=== PATIENT | female | born 1975 | race Caucasian/White ===

== ENCOUNTER 2020-03-02 00:35 | Emergency (ER) | payer OTHER ==
[~2020-03-02] VITALS: Ht 175.2 cm; Wt 99.8 kg
[2020-03-02] MEDS ORDERED: AUGMENTIN 875875 MG PO (01:34)
== END 2020-03-02 01:47 | disposition home or self-care (01) ==
LOC: ED 00:35
DX: H66.92 Otitis media, unspecified, left ear (principal)

== ENCOUNTER 2020-03-16 22:21 | Emergency (ER) | payer OTHER ==
[~2020-03-16] VITALS: Ht 175.2 cm; Wt 102.1 kg
[~2020-03-16 22:21] MED LIST: AUGMENTIN 875875 MG PO
[2020-03-16] MEDS ORDERED: OMNICEF300 MG PO (22:41)
[2020-03-16] MEDS ORDERED: ZYRTEC10 M2 PO (22:41)
== END 2020-03-16 22:43 | disposition home or self-care (01) ==
LOC: ED 22:21
DX: H66.92 Otitis media, unspecified, left ear (principal)

== ENCOUNTER 2020-11-07 14:31 | Emergency (ER) | payer OTHER ==
[~2020-11-07] VITALS: Ht 170.1 cm; Wt 81.6 kg
[~2020-11-07 14:31] MED LIST changes: +OMNICEF300 MG PO; +ZYRTEC10 M2 PO
[2020-11-07] MEDS ORDERED: IBUPROFEN600 MG PO (16:20)
[2020-11-07] MEDS ORDERED: DOXYCYCLINE100 M3 PO (16:20)
== END 2020-11-07 16:59 ==
LOC: ED 14:31
DX: L02.215 Cutaneous abscess of perineum (principal); R11.2 Nausea with vomiting, unspecified; Z79.2 Long term (current) use of antibiotics; Z79.899 Other long term (current) drug therapy

== ENCOUNTER 2021-01-27 15:17 | Emergency (ER) | payer OTHER ==
[~2021-01-27] VITALS: Ht 175.2 cm; Wt 108.9 kg
[~2021-01-27 15:17] MED LIST changes: +DOXYCYCLINE100 M3 PO; +IBUPROFEN600 MG PO
[2021-01-27] MEDS ORDERED: VIBRAMYCIN100 MG PO (15:58)
[2021-01-27] MEDS ORDERED: IBUPROFEN600 MG PO (15:58)
[2021-01-27] MEDS ORDERED: Bactroban Oint22 GM T (16:32)
== END 2021-01-27 16:01 | disposition home or self-care (01) ==
LOC: ED 15:17
DX: N76.4 Abscess of vulva (principal); Z79.2 Long term (current) use of antibiotics; Z79.899 Other long term (current) drug therapy

== ENCOUNTER 2021-08-11 16:18 | Emergency (ER) | payer OTHER ==
[~2021-08-11] VITALS: Wt 108.9 kg
[~2021-08-11 16:18] MED LIST changes: +Bactroban Oint22 GM T; +VIBRAMYCIN100 MG PO
[2021-08-11] MEDS ORDERED: CEFDINIR300 MG PO (17:10)
[2021-08-11] MEDS ORDERED: LORATADINE-D 21 EACH PO (17:10)
== END 2021-08-11 17:20 | disposition home or self-care (01) ==
LOC: ED 16:18
DX: H65.02 Acute serous otitis media, left ear (principal)

== ENCOUNTER 2022-03-01 18:33 | Emergency (ER) | payer OTHER ==
[~2022-03-01 18:33] MED LIST changes: +CEFDINIR300 MG PO; +LORATADINE-D 21 EACH PO
[2022-03-01] MEDS ORDERED: CYMBALTA60 MG PO (19:43)
[2022-03-01] MEDS ORDERED: PHENTERMINE H37.5 MG PO (19:44)
[2022-03-01] MEDS ORDERED: DICLOFENAC SOD75 MG PO (19:44)
[2022-03-01] MEDS ORDERED: TOPROL XL25 MG PO (19:44)
[2022-03-01] MEDS ORDERED: NAPROXEN250 MG PO (20:12)
[2022-03-01] MEDS ORDERED: METHOCARBAMOL750 M1 PO (20:12)
== END 2022-03-01 20:31 | disposition home or self-care (01) ==
LOC: ED 18:33
DX: M54.32 Sciatica, left side (principal); Z79.899 Other long term (current) drug therapy

== ENCOUNTER 2022-11-18 15:14 | Emergency (ER) | payer OTHER ==
[~2022-11-18] VITALS: Ht 175.2 cm; Wt 108.9 kg
[~2022-11-18 15:14] MED LIST changes: +CYMBALTA60 MG PO; +DICLOFENAC SOD75 MG PO; +METHOCARBAMOL750 M1 PO; +NAPROXEN250 MG PO; +PHENTERMINE H37.5 MG PO; +TOPROL XL25 MG PO
[2022-11-18] MEDS ORDERED: AMOXICILLIN500 M2 PO (16:31)
== END 2022-11-18 16:49 | disposition home or self-care (01) ==
LOC: ED 15:14
DX: H65.92 Unspecified nonsuppurative otitis media, left ear (principal); Z96.22 Myringotomy tube(s) status; Z79.899 Other long term (current) drug therapy

== ENCOUNTER 2022-11-21 17:08 | Emergency (ER) | payer OTHER ==
[~2022-11-21] VITALS: Ht 175.2 cm; Wt 111.1 kg
[~2022-11-21 17:08] MED LIST changes: +AMOXICILLIN500 M2 PO
[2022-11-21 17:36] LABS: BILIRUBIN Negative (Negative); BLOOD Negative (Negative); CLARITY Cloudy (Clear); COLOR Yellow (Yellow); GLUCOSE Negative (Negative); KETONE Trace (Negative); LEUKO ESTERASE 1+ (Negative); NITRITE Negative (Negative); PH 5.5 (4.5-8.0); SPECIFIC GRAVITY >= 1.030 (1.001-1.030)
[2022-11-21 17:50] LABS: BACTERIA 2+
[2022-11-21 19:59] LABS: BASO % 0.7 % (0.0-1.0); EOS # 0.1 10*3/uL (0.0-0.4); EOS % 1.9 % (1.0-4.0); HEMATOCRIT 41.7 % (37.0-47.0); LYMPH # 1.6 10*3/uL (1.3-4.4); LYMPH % 27.1 % (27.0-41.0); MEAN CELL VOLUME 87.2 fl (81.0-99.0); MEAN CORPUSCULAR HGB 29.3 pg (27.0-31.0); MEAN CORPUSCULAR HGB CONC 33.6 g/dl (33.0-37.0); MEAN PLATELET VOLUME 9.4 fl (9.6-12.3); MONO # 0.4 10*3/uL (0.1-1.0); MONO % 7.6 % (3.0-9.0); NEUT # 3.6 10*3/uL (2.3-7.9); NEUT % 62.5 % (47.0-73.0); PLATELET COUNT AUTOMATED 302 10*3/uL (130-400); RED BLOOD COUNT 4.78 10*6/uL (4.10-5.10); RED CELL DISTRI WIDTH 12.3 % (0-14.5); WHITE BLOOD COUNT 5.8 10*3/uL (4.8-10.8)
[2022-11-21 20:20] LABS: ALKALINE PHOSPHATASE 65 U/L (46-116); BUN 14 mg/dl (9-23); CHLORIDE 105 mmol/L (98-107); LIPASE 81 U/L (12-53); POTASSIUM 3.5 mmol/L (3.4-5.1); SGPT/ALT 16 U/L (10-49); TOTAL PROTEIN 7.6 gm/dL (6.0-8.0)
[2022-11-21] MEDS ORDERED: CIPRO500 MG PO (21:34)
== END 2022-11-21 22:37 | disposition home or self-care (01) ==
LOC: ED 17:08
PROVIDERS: Internal Medicine
DX: N39.0 Urinary tract infection, site not specified (principal); Z90.89 Acquired absence of other organs

== ENCOUNTER 2023-03-27 23:07 | Emergency (ER) | payer OTHER ==
[~2023-03-27] VITALS: Ht 175.2 cm; Wt 109.8 kg
[~2023-03-27 23:07] MED LIST changes: +CIPRO500 MG PO; +NYST SUSP PO
[2023-03-28] MEDS ORDERED: MELOXICAM15 MG PO (00:51)
[2023-03-28] MEDS ORDERED: CYCLOBENZAPRINE10 MG PO (00:51)
== END 2023-03-28 01:05 | disposition home or self-care (01) ==
LOC: ED 23:07
DX: M62.830 Muscle spasm of back (principal); M54.50 Low back pain, unspecified; Z79.899 Other long term (current) drug therapy; Z79.2 Long term (current) use of antibiotics

== ENCOUNTER 2023-04-17 15:49 | Emergency (ER) | payer OTHER ==
[~2023-04-17] VITALS: Ht 175.2 cm; Wt 108.9 kg
[~2023-04-17 15:49] MED LIST changes: +CYCLOBENZAPRINE10 MG PO; +MELOXICAM15 MG PO
== END 2023-04-17 17:36 | disposition left against medical advice (07) ==
LOC: ED 15:49
DX: M54.9 Dorsalgia, unspecified (principal); G89.29 Other chronic pain; Z53.21 Procedure and treatment not carried out due to patient leaving prior to being seen by health care provider

== ENCOUNTER 2023-06-15 11:14 | Emergency (ER) | payer OTHER ==
[~2023-06-15] VITALS: Ht 175.2 cm; Wt 111.1 kg
[2023-06-15] MEDS ORDERED: PREDNISONE50 MG PO (11:48)
[2023-06-15] MEDS ORDERED: VALTREX1000 MG PO (11:48)
== END 2023-06-15 11:51 | disposition home or self-care (01) ==
LOC: ED 11:14
DX: G51.0 Bell's palsy (principal); B00.9 Herpesviral infection, unspecified; Z90.89 Acquired absence of other organs; Z98.890 Other specified postprocedural states